=== PATIENT | female | born 2000 | race Asian ===

== ENCOUNTER 2019-01-18 10:37 | Emergency (ER) | payer OTHER ==
[2019-01-18] MEDS ORDERED: Meclizine HCl 25 MG TAB ONE (11:29)
[2019-01-18] MEDS ORDERED: Ondansetron ODT 4 MG TAB ONE (11:29)
[2019-01-18 13:55] LABS: Pregnancy Test - Urine (BHCG) Negative (Negative); Pregu Control Background? CLEAR/WHITE (CLR/WHITE); Pregu Control Bar Appear? YES (CONTROL BAR); Specific Gravity 1.001 (1.002-1.036)
[2019-01-18 13:56] LABS: Bilirubin Negative (Negative); Blood, Urine Negative (Negative); Clarity CLEAR (Clear); Glucose, Urine (Dipstick) Negative (Negative); Leukocyte Negative (Negative); Nitrite Negative (Negative); Protein, Urine (Dipstick) Negative (Neg-Trace); Urobilinogen 0.2 mg/dL (0.2-1.0); pH, Urine 6.5 (5.0-9.0)
[2019-01-18 13:59] LABS: Specific Gravity, Urine 1.001 (1.002-1.036)
== END 2019-01-18 14:28 | disposition home or self-care (01) ==
LOC: ERS 10:37
DX: R42 Dizziness and giddiness (principal)
CPT/HCPCS: 81003; 81025; 99284; J8499; Q0162